=== PATIENT | female | born 1955 | race Caucasian/White ===

== ENCOUNTER 2018-04-28 22:22 | Inpatient (IN) | payer OTHER, MEDICARE ==
[~2018-04-28] VITALS: Ht 157.5 cm; Wt 51.7 kg
[2018-04-28 22:25] VITALS: BP 123/64
[2018-04-28] MEDS ORDERED: XANAX 0.25 MG0.25 MG PO (22:35)
[2018-04-28 22:36] LABS: ABSOLUTE BASOPHILS 0.1 thou/uL (0.0-0.2); ABSOLUTE EOSINOPHILS 0.2 thou/uL (0.0-0.7); ABSOLUTE LYMPHOCYTES 1.1 thou/uL (0.8-5.3); ABSOLUTE NEUTROPHILS 5.5 thou/uL (1.6-8.1); EOSINOPHILS 2.7 %; HEMATOCRIT 36.3 % (37.0-47.0); HEMOGLOBIN 12.6 gm/dL (12.0-15.0); LYMPHOCYTES 13.6 %; MCH 33.7 pg (26.0-34.0); MCHC 34.8 g/dL (28.0-37.0); MCV 96.7 fL (80.0-100.0); MONOCYTES 13.2 %; MPV 6.5 fl. (7.2-11.1); NUCLEATED RBCS 0 /100WBC; PLATELET COUNT* 245 thou/uL (150-400); POLYS 69.5 %; RBC 3.75 mil/uL (4.20-5.00); RDW-CV 13.6 % (10.5-14.5); WBC 7.9 thou/uL (4.0-11.0)
[2018-04-28] MEDS ORDERED: ZYPREXA2.5 MG PO (22:36)
[2018-04-28 22:47] LABS: ANION GAP 6 mmol/L (7-16); BUN 28 mg/dL (7-18); CALCIUM 8.9 mg/dL (8.5-10.1); CHLORIDE 101 mmol/L (98-107); CO2 30 mmol/L (21-32); CREATININE 1.5 mg/dL (0.6-1.3); GLUCOSE 106 mg/dL (70-99); POTASSIUM 3.3 mmol/L (3.5-5.1); PROTIME 10.2 Seconds (9.20-11.50); SODIUM 137 mmol/L (136-145)
[2018-04-28 22:50] LABS: URINE BILIRUBIN NEGATIVE (Negative); URINE BLOOD 1+ (Negative); URINE CLARITY CLEAR; URINE COLOR YELLOW; URINE GLUCOSE-RANDOM NEGATIVE (Negative); URINE KETONES NEGATIVE (Negative); URINE LEUKOCYTES-REFLEX 1+ (Negative); URINE NITRITE-REFLEX NEGATIVE (Negative); URINE PROTEIN NEGATIVE (Negative); URINE UROBILINOGEN 0.2 E.U./dl (0.2-1.0)
[2018-04-28 22:52] LABS: ALBUMIN 3.5 g/dL (3.4-5.0); ALKALINE PHOSPHATASE 69 U/L (46-116); SGOT 38 U/L (15-37); SGPT 38 U/L (30-65); TOTAL BILIRUBIN 0.3 mg/dL (<0.1-1.0); TOTAL PROTEIN 6.9 g/dL (6.4-8.2); TROPONIN-I LEVEL <0.06 ng/mL (<0.06)
[2018-04-28 22:56] LABS: AMP/METHAMP Negative (Negative); BARBITURATES Negative (Negative); BENZODIAZEPINES POSITIVE (Negative); COCAINE Negative (Negative); METHADONE Negative (Negative); OPIATES Negative (Negative); PCP Negative (Negative); THC POSITIVE (Negative)
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
[2018-04-28 23:26] LABS: BACTERIA-REFLEX None Seen /HPF (None Seen); CASTS None Seen /LPF (None Seen); CRYSTALS None Seen /LPF (None Seen); SQUAMOUS 0-3 Few /LPF (0-3); URINE RBC 0-2 Rare /HPF (0-2); URINE WBC-REFLEX 0-5 Rare /HPF (0-5)
[2018-04-28 23:26] LABS: SALICYLATE 8.6 mg/dL (2.8-20.0)
[2018-04-29] VITALS (11 sets, daily range): BP systolic 122–166; BP diastolic 46–75
--- NOTE | 2018-04-29 02:48 | NUR ---
PT ASSISTED TO BEDSIDE COMMODE.
[2018-04-29] MEDS ORDERED: PEPCID20 MG PO (07:57)
[2018-04-29] MEDS ORDERED: CARVEDILOL12.5 MG PO (07:58)
[2018-04-29] MEDS ORDERED: MELOXICAM7.5 MG PO (08:00)
[2018-04-29] MEDS ORDERED: MOBIC7.5 MG PO (08:01)
[2018-04-29] MEDS ORDERED: ZOLOFT100 MG PO (08:02)
[2018-04-29] MEDS ORDERED: AMITRIPTYLINE H25 M2 PO (08:04)
[2018-04-29] MEDS ORDERED: NORCO 10-325 T1 EACH PO (08:06)
--- NOTE | 2018-04-29 08:33 | NUR ---
PT ADMITTED FROM ER AFTER SHE TOOK AN OVERDOSE OF XANAX. PT STATES SHE ONLY WANTS INFO GIVEN TO HER SISTER, ALIYAH. STATED THAT SHE DID NOT WANT HER TO HAVE ANY INFO OR TO SEE HIM. APPEARED VERY UPSET WITH HIM. WHEN HER CAME TO VISIT SHE ACTED DIFFERENTLY. SHE DID NOT APPEAR UPSET. PT ORIENTED TO ROOM, CALL LIGHT, AND BED CONTROLS. LESLIE STEPHENSON INTRODUCED TO THE PT AND IS CURRENTLY SITTING AT PT BEDSIDE FOR PT SAFETY.
[2018-04-29 10:31] LABS: CALCIUM 9.1 mg/dL (8.5-10.1); CREATININE 1.1 mg/dL (0.6-1.3); POTASSIUM 3.4 mmol/L (3.5-5.1)
[2018-04-29 10:36] LABS: ALBUMIN 3.4 g/dL (3.4-5.0); MAGNESIUM 1.4 mg/dL (1.8-2.4); TOTAL BILIRUBIN 0.3 mg/dL (<0.1-1.0); TOTAL PROTEIN 6.9 g/dL (6.4-8.2)
--- NOTE | 2018-04-29 16:53 | NUR ---
PT UPSET AND DEPRESSED OVER GOING TO INPT PSYCH TX. STATES THAT THERE IS NO NEED FOR THAT. PT EDUCATED ON NEED/RECOMMENDATION FROM PSYCHIATRIST FOR INPT TREATMENT. PT COVERS HER FEELINGS WHEN HER IS HERE. PT BROTHER, CHANO, STATES THAT THE PT IS WELCOME TO COME LIVE AT HIS HOUSE AFTER DISCHARGE. HIS PHONE NUMBER IS [phone]. PRN PAIN MEDICATION GIVEN FOR HEADACHE. BEGINNING TO PROGRESS TOWARDS GOALS.
--- NOTE | 2018-04-29 18:41 | NUR ---
PATIENT TRANSFERRED TO ROOM 313 VIA WHEELCHAIR FROM ICU. AGREE WTIH PREVIOUS ASSESEMNT. PATIENT'S IV FLUIDS RESUMED. PATIENT STATES STILL HAVING A HEADACHE, BUT RECEIVED TYLENOL WHEN IN ICU. PATIENT DENIES ANY SUICIDAL IDEATIONS TO THIS NURSE, STATING SHE WAS JUST 'STUPID'. PATIENT ASKED ABOUT DC PLANNING AND STATED TO THIS NURSE THAT SHE DIDN'T WANT TO GO TO A [facility] AND WANTED TO GO HOME. PATIENT RE-EDUCATED ON SUICIDE PRECAUTIONS, PATIENT ASKED IF SHE COULD HAVE A TELEPHONE AND EXPLAINED TO PATIENT SHE COULD NOT. PLACED ON TRUCK TERMINAL MANAGER, TRACING NSR. SITTER AT BEDSIDE. WILL CONTINUE WITH PLAN OF CARE.
[2018-04-30] VITALS: BP 154/67
[2018-04-30 04:00] VITALS: BP 130/58
--- NOTE | 2018-04-30 06:11 | NUR ---
PT SLEPT ON AND OFF THIS SHIFT. ASSESSMENT DOCUMENTED. MEDS GIVEN PER E-MAR. IV PATENT, FLUIDS INFUSING. SITTER REMAINED IN ROOM PER SI PROTOCOL. ROOM SCRUBBED OF ITEMS PER PROTOCOL. PTS VISITED PART OF NIGHT. PTS BECAME UPSET WHEN TOLD HE COULD NOT LET PATIENT SEE TEXTS ON HIS PHONE, INFORMED OF PROTOCOL FOR SAFTEY. PHONE AND JACKET LOCKED IN BEHAVIOR HEALTH DRAWER WHILE VISITING. PAIN MEDS GIVEN PER E-MAR FOR HIP PAIN. WILL CONTINUE TO MONITOR.
[2018-04-30 07:05] LABS: CALCIUM 8.2 mg/dL (8.5-10.1); POTASSIUM 3.6 mmol/L (3.5-5.1); TOTAL BILIRUBIN 0.3 mg/dL (<0.1-1.0)
[2018-04-30 08:05] VITALS: BP 154/64
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
[2018-04-30 12:25] VITALS: BP 154/64
--- NOTE | 2018-04-30 13:40 | NUR ---
PATIENT DISCHARGED TO [facility]. REPORT CALLED TO KAYLEIGH. COPY OF DISCHARGE PAPERS AND CHART GIVEN TO TRANSPORTERS. BELONGINGS GIVEN TO TRANSPORTERS. IV REMOVED. AT BEDSIDE. PATIENT LEFT BY EMS AT THIS TIME.
--- NOTE | 2018-04-30 13:45 | EKG ---
[place] [address] ELECTROCARDIOGRAM REPORT Name: ALEXEY MEDINA Room: [address] ADM IN [facility]#: [id number] Admission: 04/28/18 Attend Phys: Pamela Díaz Discharge: Date of : 51 Report #: [id number] THIS REPORT FOR: //name// [facility] ED Test Date: 2018-04-28 Test Time: 22:28:47 Pat Name: ALEXEY MEDINA Department: Room: [facility] Gender: F Endocrinologist: : 1955 Requested By: Rose Pool Order Number: [id number] MD: Kalia Doshi Measurements Intervals Sagle Rate: 80 P: 83 VA: 178 QRS: 51 QRSD: 98 T: 50 QT: 390 QTc: 450 Interpretive Statements Sinus rhythm No previous ECG available for comparison Electronically Signed On 04-30-2018 13:44:58 RESEARCH SCIENTIST by Kalia Doshi [email or web address] <ELECTRONICALLY SIGNED> By: Kalia Doshi MD, [facility] 04/30/18 [id number] Kalia Doshi MD, FACC /EPI
== END 2018-04-30 13:40 | DRG 917 ==
LOC: M.ERS 22:22 → M.ICU 23:12 → M.3W 23:12 → M.TBA-ER 23:12 → M.ICU 04-29 07:25 → M.3W 04-29 18:33
PROVIDERS: Emergency Medicine; ADMIT Internal Medicine
DX: T42.4X2A Poisoning by benzodiazepines, intentional self-harm, initial encounter (principal); G92 Toxic encephalopathy; F31.9 Bipolar disorder, unspecified; F17.210 Nicotine dependence, cigarettes, uncomplicated; I10 Essential (primary) hypertension; Z90.710 Acquired absence of both cervix and uterus; Z90.49 Acquired absence of other specified parts of digestive tract; Z88.8 Allergy status to other drugs, medicaments and biological substances; Z80.1 Family history of malignant neoplasm of trachea, bronchus and lung; Z80.6 Family history of leukemia; Z80.52 Family history of malignant neoplasm of bladder; Y92.89 Other specified places as the place of occurrence of the external cause